=== PATIENT | female | born 1985 | race Caucasian/White ===

== ENCOUNTER → 2016-08-13 | Outpatient (CLI) | payer OTHER ==
--- NOTE | 2016-08-13 08:18 | US ---
EXAMINATION TYPE: US abdomen complete DATE OF EXAM: 08/13/2016 7:35 AM COMPARISON: NONE CLINICAL HISTORY: R10.84 Abdominal pain. EXAM MEASUREMENTS: Liver Length: 15.7 cm Gallbladder Wall: 0.2 cm CBD: 0.3 cm Spleen: 11.2 cm Right Kidney: 8.4 x 2.8 x 4.0 cm Left Kidney: 12.9 x 4.8 x 5.4 cm Pancreas: visualized portions wnl Liver: wnl Gallbladder: full of echogenic material with some shadowing Evidence for sonographic Olivares's sign: No CBD: wnl Spleen: wnl Right Kidney: atrophic Left Kidney: enlarged Upper IVC: wnl Abd Aorta: wnl The liver is homogenous. The intrahepatic portion of the IVC and proximal abdominal aorta are within normal limits. There is evidence of cholelithiasis. Common bile duct is unremarkable. The visualize d portions of the pancreas are homogenous. The spleen is unremarkable. The right kidney is atrophic with compensatory hypertrophy of the left kidney. No renal lesions are detected. IMPRESSION: 1. Cholelithiasis. 2. Atrophic changes of the right kidney.
== END | disposition home or self-care (01) ==
LOC: RADUSWWP 07:06
PROVIDERS: ATTEND Internal Medicine
DX: K80.20 Calculus of gallbladder without cholecystitis without obstruction (principal); N26.1 Atrophy of kidney (terminal)
CPT/HCPCS: 76700